=== PATIENT | male | born 1955 | race Caucasian/White ===

== ENCOUNTER 2017-04-27 04:16 | Observation (INO) | payer OTHER ==
[~2017-04-27] VITALS: Ht 180.3 cm; Wt 83.0 kg
[2017-04-27 04:23] VITALS: BP 128/79; PULSE 61; RESP 16; TEMP 97.6; O2SAT 97
--- NOTE | 2017-04-27 04:26 | PD ---
HPI Chief Complaint: chest pain Time Seen by Provider: 04:23 Travel History International Travel<30 days: No Contact w/Intl Traveler<30days: No Traveled to known affect area: No History of Present Illness HPI 61-year-old male with history of hypertension, presents to the ER today with right sided chest pains or radiation to the back area, currently rated 8 out of 10 starting about half an hour prior to arrival. He states it feels like a pressure. He does not know any exacerbating or alleviating factors. He denies any nausea, vomiting, shortness of breath, or any other symptoms. He took 2 tablets of 325 aspirin at home. Modifying Factors: None Associated Signs & Symptoms: Chest pain Risk Factors: None PFSH Social History Tobacco Use: No Allergies-Medications (Allergen,Severity, Reaction): Coded Allergies: Keflex (Verified Allergy, Mild, hives, 04/27/17) Review of Systems Except as stated in HPI: all other systems reviewed are Neg Physical Exam Narrative GENERAL: Well-developed elderly white male patient currently in mild distress. Awake and oriented 3. SKIN: Focused skin assessment warm/dry. HEAD: Atraumatic. Normocephalic. EYES: Pupils equal and round. No scleral icterus. No injection or drainage. ENT: No nasal bleeding or discharge. Mucous membranes pink and moist. NECK: Trachea midline. No JVD. CARDIOVASCULAR: Regular rate and rhythm. No murmur appreciated. Pulses are present and equal bilaterally. RESPIRATORY: No accessory muscle use. Clear to auscultation. Breath sounds equal bilaterally. GASTROINTESTINAL: Abdomen soft, non-tender, nondistended. Hepatic and splenic margins not palpable. MUSCULOSKELETAL: No obvious deformities. No clubbing. No cyanosis. No edema. NEUROLOGICAL: Awake and alert. No obvious cranial nerve deficits. Motor grossly within normal limits. Normal speech. PSYCHIATRIC: Appropriate mood and affect; insight and judgment normal. Data Data Last Documented VS Vital Signs Date Time Temp Pulse Resp B/P Pulse Ox O2 Delivery O2 Flow Rate FiO2 04/27/17 04:36 99 Room Air 04/27/17 04:23 97.6 61 16 128/79 Orders Electrocardiogram (04/27/17 04:23) Ckmb (Isoenzyme) Profile (04/27/17 04:23) Complete Blood Count With Diff (04/27/17 04:23) Comprehensive Metabolic Panel (04/27/17 04:23) Magnesium (Mg) (04/27/17 04:23) Prothrombin Time / Inr (Pt) (04/27/17 04:23) Act Partial Throm Time (Ptt) (04/27/17 04:23) Troponin I (04/27/17 04:23) Chest, Single Ap (04/27/17 04:23) Ecg Monitoring (04/27/17 04:23) Bilateral Bp Monitoring (04/27/17 04:23) Iv Access Insert/Monitor (04/27/17 04:23) Oximetry (04/27/17 04:23) Oxygen Administration (04/27/17 04:23) CKMB (04/27/17 04:30) CKMB% (04/27/17 04:30) Labs Laboratory Tests Test 04/27/17 04:30 White Blood Count 4.1 TH/MM3 Red Blood Count 4.23 MIL/MM3 Hemoglobin 13.9 GM/DL Hematocrit 39.7 % Mean Corpuscular Volume 93.9 FL Mean Corpuscular Hemoglobin 32.8 PG Mean Corpuscular Hemoglobin 35.0 % Concent Red Cell Distribution Width 13.7 % Platelet Count 215 TH/MM3 Mean Platelet Volume 8.3 FL Neutrophils (%) (Auto) 44.5 % Lymphocytes (%) (Auto) 35.9 % Monocytes (%) (Auto) 14.2 % Eosinophils (%) (Auto) 4.1 % Basophils (%) (Auto) 1.3 % Neutrophils # (Auto) 1.8 TH/MM3 Lymphocytes # (Auto) 1.5 TH/MM3 Monocytes # (Auto) 0.6 TH/MM3 Eosinophils # (Auto) 0.2 TH/MM3 Basophils # (Auto) 0.1 TH/MM3 CBC Comment DIFF FINAL Differential Comment Prothrombin Time 10.9 SEC Prothromb Time International 1.0 RATIO Ratio Activated Partial 25.6 SEC Thromboplast Time Sodium Level 140 MEQ/L Potassium Level 3.6 MEQ/L Chloride Level 106 MEQ/L Carbon Dioxide Level 26.9 MEQ/L Anion Gap 7 MEQ/L Blood Urea Nitrogen 11 MG/DL Creatinine 0.84 MG/DL Estimat Glomerular Filtration 92 ML/MIN Rate Random Glucose 122 MG/DL Calcium Level 8.3 MG/DL Magnesium Level 2.0 MG/DL Total Bilirubin 0.4 MG/DL Aspartate Amino Transf 20 U/L (AST/SGOT) Alanine Aminotransferase 21 U/L (ALT/SGPT) Alkaline Phosphatase 78 U/L Total Creatine Kinase 127 U/L Creatine Kinase MB 2.9 NG/ML Troponin I 0.03 NG/ML Total Protein 6.9 GM/DL Albumin 3.5 GM/DL MDM Medical Decision Making Medical Screen Exam Complete: Yes Emergency Medical Condition: Yes Medical Record Reviewed: Yes Interpretation(s) EKG shows sinus bradycardia at a rate of 55 bpm with a first-degree AV block. He has signs of LVH. No signs of acute ST-T elevations or depressions. Laboratory Tests Test 04/27/17 04:30 Red Blood Count 4.23 MIL/MM3 (4.50-5.90) Monocytes (%) (Auto) 14.2 % (0.0-8.0) Eosinophils (%) (Auto) 4.1 % (0.0-4.0) Random Glucose 122 MG/DL (74-106) Calcium Level 8.3 MG/DL (8.5-10.1) Differential Diagnosis Chest painACS versus musculoskeletal versus pneumonia Narrative Course Chest x-ray and EKG did not show any signs of acute processes. Cardiac enzymes are negative. At this point, my plan would be to admit the patient for chest pain center for further evaluation a chest pains. Diagnosis Primary Impression: Chest pain Admitting Information Admitting Physician Requests: it Kinza Jacobs MD Apr 27, 2017 04:26
[2017-04-27 04:28] VITALS: O2SAT 97
[2017-04-27 04:55] LABS: AUTOMATED NEUTROPHIL # 1.8 TH/MM3 (1.8-7.7); BASOPHIL # 0.1 TH/MM3 (0-0.2); BASOPHIL % 1.3 % (0.0-2.0); EOSINOPHIL # 0.2 TH/MM3 (0-0.4); EOSINOPHIL % 4.1 % (0.0-4.0); HEMATOCRIT 39.7 % (39.0-51.0); HEMO FLAGS DIFF FINAL; LYMPH % 35.9 % (9.0-44.0); LYMPHOCYTE # 1.5 TH/MM3 (1.0-4.8); MEAN CELL VOLUME 93.9 FL (80.0-100.0); MEAN CORPUSCULAR HEMOGLOBIN 32.8 PG (27.0-34.0); MONO % 14.2 % (0.0-8.0); NEUT % 44.5 % (16.0-70.0); PLATELET COUNT 215 TH/MM3 (150-450); RED BLOOD COUNT 4.23 MIL/MM3 (4.50-5.90); RED CELL DISTRIBUTION WIDTH 13.7 % (11.6-17.2); WHITE BLOOD COUNT 4.1 TH/MM3 (4.0-11.0)
--- NOTE | 2017-04-27 04:58 | RADRPT ---
EXAM DATE/TIME: 04/27/2017 04:38 [facility] COMPARISON: No previous studies available for comparison. INDICATIONS : Chest pain. MEDICAL HISTORY : None. SURGICAL HISTORY : None. ENCOUNTER: Initial ACUITY: 1 day PAIN SCORE: 9/10 LOCATION: Bilateral chest FINDINGS: A single view of the chest demonstrates the lungs to be symmetrically aerated without evidence of mas s, infiltrate or effusion. The cardiomediastinal contours are unremarkable. Osseous structures are intact. CONCLUSION: Normal examination. Escobar Muse MD on April 27, 2017 at 4:57 Board Certified Radiologist. This report was verified electronically.
[2017-04-27 05:03] LABS: ANION GAP 7 MEQ/L (5-15); AST (GOT) 20 U/L (15-37); BICARBONATE 26.9 MEQ/L (21.0-32.0); BLOOD UREA NITROGEN 11 MG/DL (7-18); CHLORIDE 106 MEQ/L (98-107); GLOMERULAR FILTRATION RATE 92 ML/MIN (>89); POTASSIUM 3.6 MEQ/L (3.5-5.1); SODIUM (NA) 140 MEQ/L (136-145)
[2017-04-27 05:07] LABS: ALKALINE PHOSPHATASE 78 U/L (45-117); ALT (GPT) 21 U/L (12-78); APTT (PATIENT) 25.6 SEC (24.3-30.1); CREATINE KINASE 127 U/L (39-308); PROTHROMBIN TIME - PATIENT 10.9 SEC (9.8-11.6); TOTAL BILIRUBIN ADULT 0.4 MG/DL (0.2-1.0)
[2017-04-27 05:19] LABS: CKMB 2.9 NG/ML (0.5-3.6)
[2017-04-27] MEDS ORDERED: ACETAMINOPHEN/HYDROcodone 325 MG/7.5 MG TAB PO PRN (05:30)
[2017-04-27] MEDS ORDERED: SODIUM CHLORIDE 0.9% FLUSH 10 ML FLUSH IV FLUSH PRN (05:30)
[2017-04-27] MEDS ORDERED: NITROGLYCERIN 2% OINT 1 GM PACKET TOP SCH (06:00)
[2017-04-27 07:24] VITALS: BP 146/87; PULSE 59; RESP 15; TEMP 97.7; O2SAT 97
[2017-04-27] MEDS ORDERED: ONDANSETRON HCL 4 MG/2 ML VIAL IV PRN (07:30)
[2017-04-27] MEDS ORDERED: NITROGLYCERIN 0.4 MG SL 25 TABS/BTL SL PRN (07:30)
[2017-04-27] MEDS ORDERED: ACETAMINOPHEN 500 MG CPLT PO PRN (07:30)
--- NOTE | 2017-04-27 08:06 | HHI.HP ---
HPI Primary Care Physician Primary Care Physician-[facility] Chief Complaint Right shoulder pain History of Present Illness 61-year-old patient with history of hypertension presents to the emergency room for further evaluation of sudden onset right shoulder pain. Woke up around 3: 30 AM to urinate. After returning to bed developed sudden right shoulder, right shoulder blade, right anterior chest pain described as a dull, pushing severe pain. Movement makes pain worse. Breathing makes pain worse. Not moving makes pain better. Pain level rated 9/10. Associated symptoms included diaphoresis and nausea. No shortness of breath. Pain continued for 15 minutes at that time he decided to call EMS. Pain has been constant, Currently rated 3/ 10 located in right shoulder blade. No known trauma or injury to area. No known precipitating. Relieving factors two aspirins prior to arrival to ER. No change in ROM. Denies numbness or tingling of right arm. Endorses yesterday he spent the day at the beach with his family and grandchildren. Swam in ocean, played with grandchildren (included lifting and carrying them, but this is not uncommon for him), and carried multiple beach chairs and supplies. Endorses an active lifestyle cycling 1215 miles daily, last biking on Friday with no chest pain or discomfort. Review of Systems General: No fatigue,weakness, fever, chills, recent illness, or change in appetite. Has been in his general state of health. Recently had a yearly physical. Endorses PCP is evaluating him due to low WBCs twice on lab work. HEENT: No GARCES, no vision changes CV: As stated above. No intermittent leg pain or dizziness RESP: No SOB, cough, wheeze, or recent URI. GI: No nausea, vomiting, bowel changes, diarrhea, constipation, or pain. N : No dysuria EXT: No lower leg edema, no paraesthesias MS: As stated above.No change in ROM NEURO: No difficulty with balance, LOC, motor/sensory deficits SKIN: No rashes, no concerning lesions Past Family Social History Allergies: Coded Allergies: Keflex (Verified Allergy, Mild, hives, 04/27/17) Past Medical History Hypertension Past Surgical History Multiple Lipoma's removed Reported Medications Amlodipine 10 mg by mouth daily Active Ordered Medications Current Medications Medications (Trade) Dose Ordered Sig/[place] Route Start Time Stop Time Status Last Admin (NS Flush) 2 ml UNSCH PRN IV FLUSH 04/27/17 05:30 (NS Flush) 2 ml BID IV FLUSH 04/27/17 09:00 ([place] 7.5-325 Mg) 1 tab Q4H PRN PO 04/27/17 05:30 (Nitroglycerin 2% Oint) 1 inch Q6HR TOP 04/27/17 06:00 04/27/17 07:19 (Aspirin) 325 mg DAILY PO 04/27/17 09:00 (Tylenol) 500 mg Q4H PRN PO 04/27/17 07:30 (Zofran Inj) 4 mg Q6H PRN IV 04/27/17 07:30 (Nitrostat Sl) 0.4 mg Q5M PRN SL 04/27/17 07:30 Family History Noncontributory for early onset cardiovascular disease. Sister from breast cancer, mom had CVA at age 85, dad kidney failure. Social History Known hypertension diagnosed 2012. No known hyperlipidemia, personal coronary artery disease, or diabetes. Lifelong nonsmoker. Endorses 1-2 beverages daily. Denies any illegal drug use. Reports an active lifestyle. Cycles 12-15 miles daily. Past cardiac testing No recent cardiac testing. 2012 chemical stress test completed due to complaints of chest pain. States chest pain found to be related to musculoskeletal pain. Physical Exam Vital Signs Vital Signs Date Time Temp Pulse Resp B/P Pulse Ox O2 Delivery O2 Flow Rate FiO2 04/27/17 07:24 97.7 59 15 146/87 97 04/27/17 04:36 99 Room Air 04/27/17 04:28 97 04/27/17 04:28 97 04/27/17 04:23 97.6 61 16 128/79 97 Physical Exam GENERAL: Alert WN, WD, NAD, pleasant, male who appears younger than stated age. Appears to have mild distress with movement. HEAD: NC, AT EYES: Sclera clear, conjunctiva without injection, pupils equal and round ENT: Mucous membranes pink and moist, no nasal discharge or bleeding NECK: Supple, no masses, trachea midline CV: RRR, without murmur, rub, gallop, no JVD, S1-S2 no S3-S4. No carotid bruits. RESP: Clear lungs throughout bilateral, no crackles, wheeze, rhonchi, symmetrical chest rise, nonlabored, able to speak in full sentences ABD: Soft, NT, ND, no masses, positive bowel tones EXT: Pulses +24, no dependent edema MS: Right shoulder blade tender with palpation, no tenderness/pain with passive range of motion right shoulder. Normal tone 4 extremities, no obvious deformities, full range of motion NEURO: CN II through CN XII grossly intact, motor strength 5/5, gait WNL PSYCH: A+O 3, pleasant affect, appropriate speech, appropriate mood and affect , insight and judgment SKIN: Normal turgor, normal texture, no lesions, no rashes, brisk cap refill, even hair distribution Laboratory Laboratory Tests Test 04/27/17 04:30 White Blood Count 4.1 Red Blood Count 4.23 Hemoglobin 13.9 Hematocrit 39.7 Mean Corpuscular Volume 93.9 Mean Corpuscular Hemoglobin 32.8 Mean Corpuscular Hemoglobin 35.0 Concent Red Cell Distribution Width 13.7 Platelet Count 215 Mean Platelet Volume 8.3 Neutrophils (%) (Auto) 44.5 Lymphocytes (%) (Auto) 35.9 Monocytes (%) (Auto) 14.2 Eosinophils (%) (Auto) 4.1 Basophils (%) (Auto) 1.3 Neutrophils # (Auto) 1.8 Lymphocytes # (Auto) 1.5 Monocytes # (Auto) 0.6 Eosinophils # (Auto) 0.2 Basophils # (Auto) 0.1 CBC Comment DIFF FINAL Differential Comment Prothrombin Time 10.9 Prothromb Time International 1.0 Ratio Activated Partial 25.6 Thromboplast Time Sodium Level 140 Potassium Level 3.6 Chloride Level 106 Carbon Dioxide Level 26.9 Anion Gap 7 Blood Urea Nitrogen 11 Creatinine 0.84 Estimat Glomerular Filtration 92 Rate Random Glucose 122 Calcium Level 8.3 Magnesium Level 2.0 Total Bilirubin 0.4 Aspartate Amino Transf 20 (AST/SGOT) Alanine Aminotransferase 21 (ALT/SGPT) Alkaline Phosphatase 78 Total Creatine Kinase 127 Creatine Kinase MB 2.9 Troponin I 0.03 Total Protein 6.9 Albumin 3.5 Result Diagram: 04/27/1742904/27/17429 Imaging Last Impressions Chest X-Ray 04/27/17422 Signed Impressions: Service Date/Time: Thursday, April 27, 2017 04:38 - CONCLUSION: Normal examination. Escobar Muse MD Course EKG 2 EKGs-First degree AV block, normal sinus bradycardiac rhythm, good R wave progression, criteria for LVH, diffuse st elevation more prominent in V2, V3, most likely early repolarization Assessment and Plan Assessment and Plan #1 Atypical chest painadmitted to chest pain center. Ruled out with 3 sets of EKGs, cardiac enzymes, and continue to monitor. Will be seen and evaluated by Dr. Leonel Beltre. Discussed possible stress test prior to discharge due to risk factors, not current symptoms. Patient agreeable to plan of care. #2 Musculoskeletal painToradol 30 mg IV 1 dose now #3 Hypertensioncontinue amlodipine 09:52 Reassessed patient after Toradol injected given. Patient states he is completely pain free. Will proceed with exercise stress test. Lynnette Frias Apr 27, 2017 08:06
[2017-04-27] MEDS ORDERED: KETOROLAC TROMETHAMINE 30 MG/ML (IVP) VIAL IV PUSH ONE (08:15)
[2017-04-27 08:57] LABS: CREATINE KINASE 134 U/L (39-308)
[2017-04-27] MEDS ORDERED: AMLO10TA2 PO (08:59)
[2017-04-27] MEDS ORDERED: ASPIRIN 325 MG TAB PO SCH (09:00)
[2017-04-27] MEDS ORDERED: SODIUM CHLORIDE 0.9% FLUSH 10 ML FLUSH IV FLUSH SCH (09:00)
[2017-04-27 09:09] LABS: CKMB 1.8 NG/ML (0.5-3.6)
[2017-04-27 10:06] VITALS: RESP 18
--- NOTE | 2017-04-27 11:23 | HHI.DCPOC ---
Discharge Care Plan Diagnosis: (1) Shoulder pain, right (2) Atypical chest pain (3) Hypertension Goals to Promote Your Health * To prevent worsening of your condition and complications * To maintain your health at the optimal level Directions to Meet Your Goals Take your medications as prescribed Follow your dietary instruction Follow activity as directed Keep your appointments as scheduled Take your immunizations and boosters as scheduled If your symptoms worsen call your PCP, if no PCP go to Urgent Care Center or Emergency Room Smoking is Dangerous to Your Health. Avoid second hand smoke Call the 24-hour hour crisis hotline for domestic abuse at Lynnette Frias Apr 27, 2017 11:23
--- NOTE | 2017-04-27 11:54 | TR ---
Date Performed: 04/27/2017 Time Performed: 10:44:53 DOCTOR: Leonel Beltre DRUG LIST: CLINICAL HISTORY: REASON FOR TEST: Chest pain REASON FOR ENDING: OBSERVATION: CONCLUSION: Rigo protocol completed. Stopped sec to reaching target heart rate and knee pain. M aximum MS=252 Target HR Achieved=86.0% Maximum XX=731/98 Total Exercise Time=10:04. No reprod chest d iscomfort. Good exerice tolerance. No st t segment changes at peak. J point depression with upsloping segments inferiorly. Diffuse early repolarization prior to exam . Good exercise tolerance. Normal bp response. Recovery quick and unremarkable. COMMENTS: Conclusion: Normal treadmill exercise. No evidence of ischemia.
--- NOTE | 2017-04-27 16:29 | EKG ---
Date Performed: 04/27/2017 Time Performed: 04:22:05 PTAGE: 61 years EKG: SINUS BRADYCARDIA WITH FIRST DEGREE AV BLOCK MINIMAL VOLTAGE CRITERIA FOR LVH, CONSIDER NOR MAL VARIANT ST ELEVATION, PROBABLY EARLY REPOLARIZATION ABNORMAL ECG NO PREVIOUS TRACING DOCTOR: Leonel Beltre Interpretating Date/Time 04/27/2017 16:28:02
--- NOTE | 2017-04-27 16:29 | EKG ---
Date Performed: 04/27/2017 Time Performed: 07:48:05 PTAGE: 61 years EKG: Sinus rhythm POSSIBLE LEFT VENTRICULAR HYPERTROPHY ABNORMAL ECG PREVIOUS TRACING : 04/27/2017 04.22 Since previous tracing, no significant change noted DOCTOR: Leonel Beltre Interpretating Date/Time 04/27/2017 16:27:44
[2017-04-28] MEDS ORDERED: PNEUMOCOCCAL POLYVALENT INJ 25 MCG/0.5 ML SYR IM ONE (10:00)
[2017-04-28] MEDS ORDERED: INFLUENZA VIRUS VACCINE (QUADRIVALENT) 0.5 ML SYR IM ONE (10:00)
== END 2017-04-27 12:50 | disposition home or self-care (01) ==
LOC: NEPE 04:16 → NEDA 05:25 → NEPGCP 06:25
DX: R07.89 Other chest pain (principal); I10 Essential (primary) hypertension; I44.0 Atrioventricular block, first degree; M25.511 Pain in right shoulder; Z79.899 Other long term (current) drug therapy
CPT/HCPCS: 71010; 80053; 82550; 82552; 83735; 84484; 85025; 85610; 85730; 93005; 93017; 99285; G0378; J1885